=== PATIENT | female | born 1980 | race Asian ===

== ENCOUNTER 2017-05-17 23:06 | Emergency (ER) | payer MEDICAID, OTHER ==
[~2017-05-17] VITALS: Ht 157.5 cm; Wt 54.0 kg
[~2017-05-17 23:06] MED LIST: IBUPROFEN600 MG ORAL; NKM
[2017-05-17 23:32] VITALS: BP 92/58
[2017-05-18] MEDS ORDERED: Ketorolac 30mg Inj IV ONE
[2017-05-18] MEDS ORDERED: Morphine Sulfate 2mg/ml Inj IVP ONE
[2017-05-18 00:03] LABS: APPEARANCE,URINE CLEAR; KETONES,URINE NEGATIVE (NEGATIVE); LEUKOCYTE ESTERASE ,URINE 1+ (NEGATIVE); NITRITE,URINE NEGATIVE (NEGATIVE); PH,URINE 8 (4.5-8.0); PROTEIN,URINE 1+ (NEGATIVE); UROBILINOGEN,URINE 1 MG/DL (0.0-1.0)
[2017-05-18 00:27] LABS: RBC,URINE 0-2 /HPF (0 - 2); SQUAMOUS EPITHELIAL CELL,UR MODERATE /LPF (NONE/OCC); WBC,URINE 0-2 /HPF (0 - 2)
[2017-05-18 00:43] LABS: BASOPHILS % (AUTO) 1.2 % (0.0-2.0); EOSINOPHILS % (AUTO) 1.9 % (0.0-3.0); LYMPHOCYTES % (AUTO) 31.2 % (20.0-45.0); MEAN CORPUSCULAR HEMOGLOBIN 30.4 PG (27.0-31.0); MEAN CORPUSCULAR VOLUME 89 FL (80-99); MEAN PLATELET VOLUME 7.8 FL (6.5-10.1); MONOCYTES % (AUTO) 9.2 % (1.0-10.0); NEUTROPHILS % (AUTO) 56.5 % (45.0-75.0); PLATELET COUNT 222 K/UL (150-450); RED BLOOD COUNT 4.46 M/UL (4.20-5.40); RED CELL DISTRIBUTION WIDTH 11.9 % (11.6-14.8); WHITE BLOOD COUNT 6.4 K/UL (4.8-10.8)
[2017-05-18 00:48] LABS: ANION GAP 7 mmol/L (5-15); CALCIUM 8.8 MG/DL (8.5-10.1); CARBON DIOXIDE 28 MMOL/L (21-32); CHLORIDE 106 MMOL/L (98-107); CREATININE 0.8 MG/DL (0.55-1.30); GLOMERULAR FILTRATION RATE > 60 mL/min (>60); POTASSIUM 3.8 MMOL/L (3.5-5.1); SODIUM 141 MMOL/L (136-145)
[2017-05-18 00:52] LABS: ALANINE AMINOTRANSFERASE 22 U/L (12-78); ALBUMIN/GLOBULIN RATIO 1.2 (1.0-2.7); ASPARTATE AMINO TRANSFERASE 15 U/L (15-37); LIPASE 138 U/L (73-393); TOTAL PROTEIN 7.1 G/DL (6.4-8.2)
--- NOTE | 2017-05-18 03:55 | Emergency Room Report ---
History of Present Illness General Chief Complaint: Abdominal Pain Source: Patient Present Illness HPI The patient presents with 3 days of suprapubic pain. She denies any fevers, nausea, vomiting, change in bowel habits. She is worried that she has appendicitis. Pain rated 5/10, constant and worsening, not radiating. Last menses normal. No dysuria. In the past she had the same problem and had an ovarian cyst. 12/10 - 3.4 cm ovary on R with hemorrhagic cyst suspected. Allergies: Coded Allergies: No Known Allergies (Unverified , 12/04/15) Patient History Past Medical History: see triage record Social History: Reports: smoking Social History Narrative Last Menstrual Period: 03/2017 Now: No - unk Reviewed Nursing Documentation: PMH: Agreed, PSxH: Agreed Nursing Documentation-PMH Past Medical History: No History, Except For Review of Systems All Other Systems: negative except mentioned in HPI Physical Exam Vital Signs Date Time Temp Pulse Resp B/P (MAP) Pulse Ox O2 Delivery O2 Flow Rate FiO2 05/17/17 23:12 97.9 82 16 92/58 98 Room Air Sp02 EP Interpretation: reviewed, normal General Appearance: well appearing, no apparent distress, GCS 15 Head: normocephalic Eyes: bilateral eye normal inspection, bilateral eye PERRL ENT: moist mucus membranes Neck: supple Respiratory: lungs clear, normal breath sounds Cardiovascular #1: regular rate, rhythm Cardiovascular #2: 2+ radial (R) Gastrointestinal: normal inspection, normal bowel sounds, no mass, non- distended, no guarding, no rebound, tenderness - suprapubic Genitourinary: no CVA tenderness, deferred - for u/s Musculoskeletal: back normal, gait/station normal, normal range of motion Neurologic: alert, oriented x3, grossly normal Psychiatric: mood/affect normal Skin: normal inspection, warm/dry Medical Decision Making Diagnostic Impression: Primary Impression: Ruptured ovarian cyst ER Course Patient presents with right lower quadrant pain. Differential includes ovarian cyst, UTI, appendicitis amongst others. Evaluation be with labs and ultrasound. The patient was treated IV hydration and analgesia. She states she 's not and therefore Toradol be given. Labs with neg preg, normal WBC, H/H normal. Clear urine. Ultrasound reveals fluid in the cul-de-sac and what looks like a probable ovarian cyst that may have ruptured. The appendix is not abnormal. Patient improved with treatment. Discussed findings and need to follow up with Appraisal Coordinator. Patient stable for outpatient observation and treatment. Laboratory Tests Test 05/17/17 22:15 05/17/17 23:15 05/18/17 00:22 Urine HCG, Qualitative Negative Urine Color Pale yellow Urine Appearance Clear Urine pH 8 (4.5-8.0) Urine Specific [place] 1.015 (1.005-1.035) Urine Protein 1+ (NEGATIVE) H Urine Glucose (UA) Negative (NEGATIVE) Urine Ketones Negative (NEGATIVE) Urine Occult Blood Negative (NEGATIVE) Urine Nitrite Negative (NEGATIVE) Urine Bilirubin Negative (NEGATIVE) Urine Urobilinogen 1 MG/DL (0.0-1.0) H Urine Leukocyte Esterase 1+ (NEGATIVE) H Urine RBC 0-2 /HPF (0 - 2) Urine WBC 0-2 /HPF (0 - 2) Urine Squamous Epithelial Cells Moderate /LPF (NONE/OCC) H Urine Bacteria None /HPF (NONE) White Blood Count 6.4 K/UL (4.8-10.8) Red Blood Count 4.46 M/UL (4.20-5.40) Hemoglobin 13.5 G/DL (12.0-16.0) Hematocrit 39.9 % (37.0-47.0) Mean Corpuscular Volume 89 FL (80-99) Mean Corpuscular Hemoglobin 30.4 PG (27.0-31.0) Mean Corpuscular Hemoglobin Concent 34.0 G/DL (32.0-36.0) Red Cell Distribution Width 11.9 % (11.6-14.8) Platelet Count 222 K/UL (150-450) Mean Platelet Volume 7.8 FL (6.5-10.1) Neutrophils (%) (Auto) 56.5 % (45.0-75.0) Lymphocytes (%) (Auto) 31.2 % (20.0-45.0) Monocytes (%) (Auto) 9.2 % (1.0-10.0) Eosinophils (%) (Auto) 1.9 % (0.0-3.0) Basophils (%) (Auto) 1.2 % (0.0-2.0) Sodium Level 141 MMOL/L (136-145) Potassium Level 3.8 MMOL/L (3.5-5.1) Chloride Level 106 MMOL/L (98-107) Carbon Dioxide Level 28 MMOL/L (21-32) Anion Gap 7 mmol/L (5-15) Blood Urea Nitrogen 18 mg/dL (7-18) Creatinine 0.8 MG/DL (0.55-1.30) Estimate Glomerular Filtration Rate > 60 mL/min (>60) Glucose Level 95 MG/DL (74-106) Calcium Level 8.8 MG/DL (8.5-10.1) Total Bilirubin 0.2 MG/DL (0.2-1.0) Aspartate Amino Transferase (AST) 15 U/L (15-37) Alanine Aminotransferase (ALT) 22 U/L (12-78) Alkaline Phosphatase 56 U/L (46-116) Total Protein 7.1 G/DL (6.4-8.2) Albumin 3.9 G/DL (3.4-5.0) Globulin 3.2 g/dL Albumin/Globulin Ratio 1.2 (1.0-2.7) Lipase 138 U/L (73-393) CT/MRI/US Diagnostic Results CT/MRI/US Diagnostic Results : Imaging Test Ordered: pelvic ultrasound Impression Impression: No acute or significant abnormality Small uterine fundal fibroid Free pelvic fluid, presumably physiologic Incidental finding nabothian cyst R ovary measures 3.1 cm (as opposed to 3/4 12/10). Last Vital Signs Date Time Temp Pulse Resp B/P (MAP) Pulse Ox O2 Delivery O2 Flow Rate FiO2 05/18/17 04:10 97.9 86 18 94/58 100 Room Air Status: improved Disposition: HOME, SELF-CARE Condition: Improved Scripts Tramadol Hcl* (ULTRAM*) 50 Mg Tablet 50 MG ORAL Q6H Y for For Pain, #10 TAB 0 Refills Prov: Mayur Pérez M.D. 05/18/17 Ibuprofen* (MOTRIN*) 600 Mg Tablet 600 MG ORAL Q6H Y for For Pain, #16 TAB Prov: Mayur Pérez M.D. 05/18/17 Referrals: [facility],REFERRING (PCP) Mayur Pérez M.D. May 18, 2017 03:55
[2017-05-18] MEDS ORDERED: TRAMADOL HCL50 MG ORAL (04:00)
[2017-05-18] MEDS ORDERED: IBUPROFEN600 MG ORAL (04:00)
[2017-05-18 04:10] VITALS: BP 94/58
--- NOTE | 2017-05-18 11:41 | Diagnostic Imaging Report ---
Indication: Right-sided pain, negative urine test Technique: Transabdominal and transvaginal images Comparison: None Findings: Retroverted uterus measures 7.8 cm length by 3.9 cm AP. Endometrium measures 7 mm thick. Small anterior fundal fibroid is noted. Right ovary measures 3.1 cm length. Left ovary measures 3.3 cm length. No adnexal mass. There is some free fluid in the pelvic cul-de-sac. There is a small cervical nabothian cyst. Impression: No acute or significant abnormality Small uterine fundal fibroid Free pelvic fluid, presumably physiologic Incidental finding nabothian cyst
== END 2017-05-18 04:10 | disposition home or self-care (01) ==
LOC: EMR 23:45
DX: N83.299 Other ovarian cyst, unspecified side (principal); D25.9 Leiomyoma of uterus, unspecified; N88.8 Other specified noninflammatory disorders of cervix uteri
CPT/HCPCS: 36415; 76830; 76856; 80053; 81003; 81025; 83690; 85025; 96361; 96374; 96375; 99284; J1885; J2270; J2405

== ENCOUNTER 2018-06-25 01:15 | Emergency (ER) | payer OTHER ==
[~2018-06-25] VITALS: Ht 162.6 cm; Wt 52.2 kg
[~2018-06-25 01:15] MED LIST changes: +TRAMADOL HCL50 MG ORAL
--- NOTE | 2018-06-25 01:39 | Emergency Room Report ---
History of Present Illness General Chief Complaint: Headache Source: Patient Present Illness HPI She is a 38-year-old female presented after increased headache. Patient gradual onset of symptoms. This is been present for approximately 2 days. Patient had taken ibuprofen without relief. Patient denies any fever. She had gradual onset of symptoms. Allergies: Coded Allergies: No Known Allergies (Unverified , 12/04/15) Patient History Last Menstrual Period: one week ago Reviewed Nursing Documentation: PMH: Agreed; PSxH: Agreed Nursing Documentation-PMH Past Medical History: No Stated History Review of Systems All Other Systems: negative except mentioned in HPI Physical Exam Vital Signs Date Time Temp Pulse Resp B/P (MAP) Pulse Ox O2 Delivery O2 Flow Rate FiO2 06/25/18 01:22 97.9 69 15 124/76 99 Room Air General Appearance: well appearing, no apparent distress, alert, GCS 15 Head: normocephalic, atraumatic ENT: hearing grossly normal, normal voice Neck: full range of motion, supple Respiratory: normal inspection, lungs clear, no respiratory distress, speaking full sentences Musculoskeletal: normal inspection, gait/station normal, normal range of motion , no calf tenderness Neurologic: normal inspection, alert, oriented x3, responsive, head filter tank tender helper III-XII nml as tested, motor strength/tone normal, normal gait Psychiatric: normal inspection, judgement/insight normal, mood/affect normal Skin: no rash Medical Decision Making Diagnostic Impression: Primary Impression: Headache ER Course Patient presented for headache. Differential diagnoses included but was not limited to skull fracture, subarachnoid hemorrhage, meningitis, aneurysm, mass lesion, intracranial hemorrhage. Because of complexity of patient's case imaging studies were ordered. Patient refused CT imaging of her head. Patient does not definitely require any imaging at this time however she does not report any history of prior imaging. Patient appears to be awake and alert in no apparent distress and has a nonfocal neurologic exam. Patient was given medication for symptomatic treatment with improvement in her headache. Patient was advised outpatient recheck with her primary care physician. test was noted to be negative. The patient is advised to follow up with primary care doctor in 1-2 days. Patient is advised to return if any worsening condition or if any changes in status that are concerning. This report is dictated with [employer] registered medical transcriptionist software which may occasionally lead to discrepancies related to use of this software. Last Vital Signs Date Time Temp Pulse Resp B/P (MAP) Pulse Ox O2 Delivery O2 Flow Rate FiO2 06/25/18 01:22 97.9 69 15 124/76 99 Room Air Status: improved Disposition: HOME, SELF-CARE Condition: Stable Scripts Acetamin/Butalbital/Caffeine* (FIORICET*) 1 Ea Tab 1 TAB ORAL Q6H, #15 TAB 0 Refills Prov: Stephen Salcedo MD 06/25/18 Stephen Salcedo MD Jun 25, 2018 01:39
[2018-06-25 01:40] VITALS: BP 121/73
--- NOTE | 2018-06-25 01:40 | NUR ---
ED Nurse Note: Pt arrived ED from home, c/o headache for 3 days. A/o x4. Vital signs stable at this time. Waiting for ordered.
[2018-06-25] MEDS ORDERED: Metoclopramide 10mg/2ml Inj IVP ONE (01:45)
[2018-06-25] MEDS ORDERED: DiphenhydrAMINE 50mg/ml Inj IVP ONE (01:45)
--- NOTE | 2018-06-25 01:55 | NUR ---
ED Nurse Note: Blood and urine sample collected and sent to Lab.
[2018-06-25 02:11] LABS: EOSINOPHILS % (AUTO) 1.3 % (0.0-3.0); HEMATOCRIT 38.5 % (37.0-47.0); HEMOGLOBIN 12.9 G/DL (12.0-16.0); LYMPHOCYTES % (AUTO) 32.7 % (20.0-45.0); MEAN CORPUSCULAR VOLUME 88 FL (80-99); MONOCYTES % (AUTO) 7.2 % (1.0-10.0); NEUTROPHILS % (AUTO) 57.7 % (45.0-75.0); PLATELET COUNT 251 K/UL (150-450); RED BLOOD COUNT 4.37 M/UL (4.20-5.40); RED CELL DISTRIBUTION WIDTH 12.3 % (11.6-14.8); WHITE BLOOD COUNT 7.1 K/UL (4.8-10.8)
--- NOTE | 2018-06-25 02:11 | NUR ---
ED Nurse Note: Meds given as ordered.
[2018-06-25 02:30] LABS: ANION GAP 8 mmol/L (5-15); BLOOD UREA NITROGEN 16 mg/dL (7-18); CARBON DIOXIDE 28 MMOL/L (21-32); CHLORIDE 106 MMOL/L (98-107); CREATININE 0.7 MG/DL (0.55-1.30); POTASSIUM 3.7 MMOL/L (3.5-5.1); SODIUM 142 MMOL/L (136-145)
[2018-06-25 02:34] LABS: ALANINE AMINOTRANSFERASE 20 U/L (12-78); ALBUMIN 4.1 G/DL (3.4-5.0); ALBUMIN/GLOBULIN RATIO 1.2 (1.0-2.7); ALKALINE PHOSPHATASE 54 U/L (46-116); ASPARTATE AMINO TRANSFERASE 12 U/L (15-37); BILIRUBIN,TOTAL 0.2 MG/DL (0.2-1.0)
[2018-06-25] MEDS ORDERED: FIORICET1 EA ORAL (03:03)
[2018-06-25 03:10] VITALS: BP 121/73
--- NOTE | 2018-06-25 03:10 | NUR ---
ED Nurse Note: Pt has seen by Dr. Salcedo, all orders carried out. Pt is ready for discharge. D/c instruction and prescription given to Pt and verbalized understanding. IV/ ID band removed . Pt d/c from ED with steady gait with all her belongings. .
== END 2018-06-25 03:10 | disposition home or self-care (01) ==
LOC: EMR 02:06
DX: R51 Headache (principal)
CPT/HCPCS: 36415; 80053; 80307; 81025; 85025; 96374; 96375; 99284; J1200; J2765